=== PATIENT | male | born 1970 | race Caucasian/White ===

== ENCOUNTER 2019-02-09 09:14 | Emergency (ER) | payer OTHER ==
[~2019-02-09] VITALS: Ht 180.3 cm; Wt 83.9 kg
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
== END 2019-02-09 10:35 | disposition home or self-care (01) ==
LOC: ED 09:14
DX: S22.41XA Multiple fractures of ribs, right side, initial encounter for closed fracture (principal); W22.8XXA Striking against or struck by other objects, initial encounter
CPT/HCPCS: 71046; 99283-25; A9270

== ENCOUNTER 2019-02-11 10:17 | Emergency (ER) | payer OTHER ==
[~2019-02-11] VITALS: Ht 180.3 cm; Wt 0.4 kg
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
== END 2019-02-11 12:00 | disposition home or self-care (01) ==
LOC: ED 10:17
DX: S27.0XXD Traumatic pneumothorax, subsequent encounter (principal); S22.41XD Multiple fractures of ribs, right side, subsequent encounter for fracture with routine healing; Y04.8XXD Assault by other bodily force, subsequent encounter; F17.200 Nicotine dependence, unspecified, uncomplicated
CPT/HCPCS: 71046; 99283-25; 99406

== ENCOUNTER 2019-12-03 03:52 | Emergency (ER) | payer MEDICARE ==
[~2019-12-03] VITALS: Ht 180.3 cm; Wt 77.6 kg
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
== END 2019-12-03 04:30 | disposition home or self-care (01) ==
LOC: ED 03:52
DX: S00.83XA Contusion of other part of head, initial encounter (principal); S50.312A Abrasion of left elbow, initial encounter; S50.311A Abrasion of right elbow, initial encounter; S80.212A Abrasion, left knee, initial encounter; S80.211A Abrasion, right knee, initial encounter; F17.200 Nicotine dependence, unspecified, uncomplicated; Y04.2XXA Assault by strike against or bumped into by another person, initial encounter
CPT/HCPCS: 99284

== ENCOUNTER 2019-12-11 11:06 | Emergency (ER) | payer MEDICARE ==
[~2019-12-11] VITALS: Ht 180.3 cm; Wt 77.6 kg
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
[2019-12-11] MEDS ORDERED: NAPROSYN500 MG PO (12:16)
[2019-12-11] MEDS ORDERED: NORCO 10-325 T1 EACH PO (12:16)
--- NOTE | 2019-12-11 16:15 | EKG ---
[facility] [address] [place] [address] Signed Normal sinus rhythm Left axis deviation Abnormal ECG No previous ECGs available Confirmed by JAYLAN ARRIAGA MD ([id number]) on 12/11/2019 4:14:55 PM Electronically Signed By: JAYLAN ARRIAGA MD 12/11/19 1615 PATIENT NAME: ALESSANDRA TELLO [place] Electrocardiogram DATE OF : 70 PHYSICIAN: JAYLAN ARRIAGA MD REPORT #: [id number] REPORT IS CONFIDENTIAL AND NOT TO BE RELEASED WITHOUT AUTHORIZATION
== END 2019-12-11 12:31 | disposition home or self-care (01) ==
LOC: ED 11:06
DX: S22.32XA Fracture of one rib, left side, initial encounter for closed fracture (principal); F17.200 Nicotine dependence, unspecified, uncomplicated; X58.XXXA Exposure to other specified factors, initial encounter
CPT/HCPCS: 71101; 93005; 93010; 99285-25

== ENCOUNTER 2021-09-18 13:17 | Emergency (ER) | payer MEDICARE ==
[~2021-09-18] VITALS: Ht 180.3 cm; Wt 77.9 kg
[~2021-09-18 13:17] MED LIST: NAPROSYN500 MG PO; NORCO 10-325 T1 EACH PO
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
== END 2021-09-18 14:58 | disposition home or self-care (01) ==
LOC: ED 13:17
DX: S43.402A Unspecified sprain of left shoulder joint, initial encounter (principal); S80.01XA Contusion of right knee, initial encounter; M19.90 Unspecified osteoarthritis, unspecified site; F17.200 Nicotine dependence, unspecified, uncomplicated; Y04.8XXA Assault by other bodily force, initial encounter
CPT/HCPCS: 73030; 73560; 99283-25